=== PATIENT | female | born 1945 | race Hispanic/Latino ===

== ENCOUNTER 2018-03-10 16:18 | Emergency (ER) | payer MEDICARE ==
[~2018-03-10] VITALS: Ht 157.5 cm; Wt 52.2 kg
--- NOTE | 2018-03-10 18:21 | Diagnostic Imaging Report ---
PROCEDURE:X-RAY RIGHT FOOT, COMPLETE COMPARISON:None. INDICATIONS:RIGHT 3RD AND 4TH DIGIT PAIN, BRUISING TODAY FINDINGS: There are no fractures, dislocations, lytic or blastic lesions. Deformities of the fifth metatarsal head and distal aspect of the fifth proximal phalanx may be related to remote trauma. Posterior and dorsal calcaneal enthesophytes. The bones are well-mineralized. The soft-tissues are unremarkable. CONCLUSION: No acute osseous abnormalities. Dictated by: Destin Yang M.D. on 03/10/2018 at 18:26 Electronically approved by: Destin Yang M.D. on 03/10/2018 at 18:26
[2018-03-10 19:37] VITALS: BP 141/75
== END 2018-03-10 19:53 | disposition home or self-care (01) ==
LOC: ER 16:18
DX: S92.351A Displaced fracture of fifth metatarsal bone, right foot, initial encounter for closed fracture (principal); M79.671 Pain in right foot; S90.121A Contusion of right lesser toe(s) without damage to nail, initial encounter; I10 Essential (primary) hypertension; K21.9 Gastro-esophageal reflux disease without esophagitis; G89.29 Other chronic pain
CPT/HCPCS: 99283

== ENCOUNTER 2018-06-04 11:59 | Observation (INO) | payer MEDICARE ==
[~2018-06-04] VITALS: Ht 157.5 cm; Wt 57.6 kg
--- OUTSIDE RECORDS SUMMARY | 2018-06-04 12:01 | XMS REPORT | Clinical Summary ---
Author Author [facility] Organization [facility] Address Unknown Phone Unavailable Care Team Providers Care Club Director Name Role Phone Mariana Up MD PCP Allergies Active Allergy Reactions Severity Noted Date Comments Adhesive Rash High 02/07/2014 Penicillins Hives High 06/11/2010 ANAPHYLACTIC SHOCK ANAPHYLACTIC SHOCK Propoxyphene 01/28/2013 ANAPHYLACTIC SHOCK N-Acetaminophen Current Medications Prescription Sig. Disp. Refills Start End Date Status Date amLODIPine (NORVASC) 10 Take 10 mg by mouth. Active mg tablet acetaminophen-codeine Q 6 H PRN P 08/13/19 Active (TYLENOL WITH CODEINE #3) 17 300-30 mg per tablet albuterol (PROAIR Take 2 puffs by mouth. 09/21/19 Active HFA,PROVENTIL 17 HFA,VENTOLIN HFA) 90 mcg/actuation inhaler alendronate (FOSAMAX) 70 Take 70 mg by mouth. 09/21/19 Active MG tablet 17 levothyroxine (SYNTHROID, Take 100 mcg by mouth. 09/21/19 Active LEVOXYL) 100 mcg tablet 17 metoprolol succinate XL Take 25 mg by mouth. 09/21/19 Active (TOPROL-XL) 25 mg 24 hr 17 tablet losartan-hydrochlorothiaz Take 1 tablet by mouth. 09/21/19 Active mikey (HYZAAR) 50-12.5 mg 17 per tablet oxyCODone-acetaminophen Take 1 tablet by mouth Active (PERCOCET) 5-325 mg per every 4 (four) hours as tablet needed for moderate pain. Active Problems Problem Noted Date History of thyroid cancer 02/22/2017 HTN (hypertension) 02/22/2017 Back pain 02/22/2017 Social History Tobacco Use Types Packs/Day Years Used Date Never Smoker Sex Assigned at Date Recorded Not on file Last Filed Vital Signs Not on file Plan of Treatment Health Maintenance Due Date Last Done Comments BREAST CANCER SCREENING 1995 COLON CANCER SCREENING 1995 SHINGRIX VACCINE (#1) 1995 INFLUENZA VACCINE 03/08/2018 09/10/2016, 06/20/2012, 04/06/2011 PNEUMOCOCCAL Completed 10/05/2009 POLYSACCHARIDE VACCINE AGE 65 AND OVER PNEUMOCOCCAL-13 Completed 01/17/2015 ZOSTER VACCINE Completed 07/08/2015 Results Not on fileafter 06/03/2017 Insurance Payer Benefit Subscriber ID Type Phone Address Plan / Group AETNA MEDICARE AETNA xxxxxxxx HMO MEDICARE HMO/PPO [facility]
--- OUTSIDE RECORDS SUMMARY | 2018-06-04 12:01 | XMS REPORT | Clinical Summary ---
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 CPT CODE: [id number] INDICATION: Abdominal pain, rule out cholecystitis PROTOCOL: 5.4 mCi of Tc-99m mebrofenin was injected intravenously. Images of the upper abdomen were obtained for approximately 70 minutes after tracer injection. FINDINGS: There is a photopenic defect in the medial portion of the right lobe of the liver superiorly. Initial tracer uptake into the liver is otherwise physiological. Subsequent tracer clearance from the liver proceeds normally. There is good visualization of the extrahepatic biliary duct and the gallbladder, and the tracer appears appropriately in the small bowel. Activity is also noted in the stomach. IMPRESSION: 1. Space-occupying lesion of the right lobe of the liver consistent with known cyst. 2. No evidence of acute cholecystitis or biliary obstruction. 3. Bile reflux into the stomach. Signed: Jennifer Charles MD Report Verified Date/Time: 08/02/2017 13:14:45 Reading Location: [address] Reading Room Performing Organization Address City/State/Zipcode Phone Number [facility] * PT/aPTT (08/02/2017 6:55 AM PERITONEAL DIALYSIS REGISTERED NURSE) Only the most recent of 3 results within the time period is included. Protime 14.8 (H) 11.7 - 14.7 seconds [facility] INR 1.2 <=5.9 [facility] PTT 29.1 22.5 - 36.0 seconds [facility] Specimen Blood - Central Venous Line Narrative Performed At RECOMMENDED COUMADIN/WARFARIN INR THERAPY RANGES [facility] STANDARD DOSE: 2.0 - 3.0 Includes: PROPHYLAXIS for venous thrombosis, [facility] systemic embolization; TREATMENT for venous thrombosis and/or pulmonary embolus. HIGH RISK: Target INR is 2.5-3.5 for patients with mechanical heart valves. Performing Organization Address City/[facility]/Zipcode Phone Number [facility] [address] [place] [address] [facility] C[facility] * CBC with platelet count + automated diff (08/02/2017 6:55 AM PERITONEAL DIALYSIS REGISTERED NURSE) Only the most recent of 4 results within the time period is included. WBC 3.9 3.5 - 10.5 K/L [facility] RBC 3.77 (L) 3.93 - 5.22 M/L [facility] Hemoglobin 10.4 (L) 11.2 - 15.7 GM/DL [facility] Hematocrit 32.1 (L) 34.1 - 44.9 % [facility] MCV 85.1 79.4 - 94.8 fL [facility] MCH 27.6 25.6 - 32.2 pg [facility] MCHC 32.4 32.2 - 35.5 GM/DL [facility] RDW 13.0 11.7 - 14.4 % [facility] Platelets 169 150 - 450 K/CU MM [facility] MPV 9.6 9.4 - 12.3 fL [facility] nRBC 0 0 - 0 /100 WBC [facility] % Neutros 52 % [facility] % Lymphs 35 % [facility] % Monos 8 % [facility] % Eos 4 % [facility] % Baso 1 % [facility] # Neutros 2.02 1.56 - 6.13 K/L [facility] # Lymphs 1.37 1.18 - 3.74 K/L [facility] # Monos 0.30 0.24 - 0.36 K/L [facility] # Eos 0.15 0.04 - 0.36 K/L [facility] # Baso 0.02 0.01 - 0.08 K/L [facility] Immature 0 0 - 1 % [facility] Granulocytes-Relative [facility] Specimen Blood - Central Venous Line Performing Organization Address City/State/Zipcode Phone Number [facility] [address] [place] [address] [facility] * Phosphorus (08/01/2017 6:06 AM PERITONEAL DIALYSIS REGISTERED NURSE) Only the most recent of 2 results within the time period is included. Phosphorus 2.6 2.3 - 4.7 mg/dL [facility] Specimen Blood - Arm, Right Performing Organization Address City/State/Zipcode Phone Number [phone] [facility] * Magnesium (08/01/2017 6:06 AM PERITONEAL DIALYSIS REGISTERED NURSE) Only the most recent of 2 results within the time period is included. Magnesium 1.7 1.6 - 2.6 mg/dL [facility] Specimen Blood - Arm, Right Performing Organization Address City/State[facility] Phone Number [address] [address] [facility] * Hepatic function panel (08/01/2017 6:06 AM PERITONEAL DIALYSIS REGISTERED NURSE) Only the most recent of 3 results within the time period is included. Protein, Total 6.8 6.0 - 8.3 gm/dL [facility] Albumin 3.8 3.5 - 5.0 g/dL [facility] Total Bilirubin 0.4 0.2 - 1.2 mg/dL [facility] Bilirubin, Direct 0.2 0.1 - 0.5 mg/dL [facility] Alkaline Phosphatase 78 40 - 150 U/L [facility] AST 16 5 - 34 U/L [facility] ALT 9 6 - 55 U/L [facility] Specimen Blood - Arm, Right Performing Organization Address City/State/[facility] Phone Number [phone] [facility] * Basic metabolic panel (08/01/2017 6:06 AM PERITONEAL DIALYSIS REGISTERED NURSE) Only the most recent of 3 results within the time period is included. Sodium 141 136 - 145 meq/L [facility] Potassium 4.1 3.5 - 5.1 meq/L [facility] Chloride 110 (H) 98 - 107 meq/L [facility] CO2 15 (L) 22 - 29 meq/L [facility] BUN 9 7 - 21 mg/dL [facility] Creatinine 0.59 0.57 - 1.25 mg/dL [facility] Glucose 48 (L) 70 - 105 mg/dL [facility] Calcium 9.1 8.4 - 10.2 mg/dL [facility] EGFR 100Comment: ESTIMATED GFR IS mL/min/1.73 sq m [facility] NOT ACCURATE CREATININE [facility] CLEARANCE IN PREDICTING GLOMERULAR FILTRATION RATE. ESTIMATED GFR IS NOT APPLICABLE FOR DIALYSIS PATIENTS. Specimen Blood - Arm, Right Performing Organization Address City/State/Zipcode Phone Number [facility] [address] [place] [address] [facility] * CT abdomen/pelvis with IV contrast (07/31/2017 11:33 AM PERITONEAL DIALYSIS REGISTERED NURSE) Narrative Performed At FINAL REPORT Harri DOSE REDUCTION: The examination was performed according to departmental dose-optimization program which includes automated exposure control, adjustment of the mA and/or kV according to patient size and/or use of iterative reconstruction technique. TECHNIQUE: CT of the abdomen and pelvis with intravenous contrast. COMPARISON: CT, 06/12/2012 Discussion: There is atelectasis in the lung bases. Trace pleural effusions are seen. Partially depicted heart is enlarged. A right hepatic cyst is identified measuring 6 x 5 cm. This is enlarged compared to 06/12/2012, although the density measurements remain consistent with a simple cyst. There is mild intra and extrahepatic bile duct dilatation, with the CBD measuring up to 9 mm. This appears similar to the CT from 06/12/2012. No gross CT findings of cholecystitis. Pancreas appears unremarkable. There is a 1 cm low-density lesion in the spleen which is difficult to characterize further. Adrenal glands appear unremarkable. There is a 3 mm nonobstructing left renal stone. 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 A hypoenhancing 6 mm lesion in the right kidney is too small to characterize. Otherwise kidneys and ureters appear unremarkable. Moderate amount of stool throughout the colon. There is moderate wall thickening involving portions of the ascending colon. Nonspecific colitis is suspected. Differential would include infectious, inflammatory, and ischemic etiologies. Otherwise small bowel and colon appear grossly unremarkable. The appendix is not well visualized. However there is noinflammatory stranding or fluid collection inthe right lower quadrant to suggest the presence of appendicitis. There is trace perihepatic ascites. Trace scattered small amounts of free fluid seen elsewhere. No organized fluid collection or abscess. No significant lymphadenopathy. Aorta and IVC are normal in caliber. Uterus is surgically absent. No suspicious adnexal masses. Urinary bladder is unremarkable. Bilateral subcutaneous/soft tissue areas of stranding and calcifications again noted, similar to 06/12/2012. IMPRESSION: 1. Right hepatic cyst appears enlarged compared to 06/12/2012 although density measurements on this exam remain consistent with simple cyst. This could be followed. 2. Mild intra and extra hepatic bile duct dilatation appears relatively similar as well. Correlation with history and LFTs recommended. This could be assessed with MRCP if there is concern. 3. Nonspecific indeterminate low-density splenic lesion which could be followed. 4. Wall thickening involving portions of the ascending colon could represent nonspecific colitis. 5. Scattered minimal amounts of fluid fluid and stranding. No organized fluid collection or abscess. 6. Nonobstructing left renal stone. Subcentimeter right renal hypodensity, nonspecific. Signed: Gavin Julian MD Report Verified Date/Time:07/31/2017 12:17:33 Reading Location: [address] Transitional Reading Room Procedure Note Interface, External Ris In - 07/31/2017 12:19 PM PERITONEAL DIALYSIS REGISTERED NURSE FINAL REPORT DOSE REDUCTION: The examination was performed according to departmental dose-optimization program which includes automated exposure control, adjustment of the mA and/or kV according to patient size and/or use of iterative reconstruction technique. TECHNIQUE: CT of the abdomen and pelvis with intravenous contrast. COMPARISON: CT, 06/12/2012 Discussion: There is atelectasis in the lung bases. Trace pleural effusions are seen. Partially depicted heart is enlarged. A right hepatic cyst is identified measuring 6 x 5 cm. This is enlarged compared to 06/12/2012, although the density measurements remain consistent with a simple cyst. There is mild intra and extrahepatic bile duct dilatation, with the CBD measuring up to 9 mm. This appears similar to the CT from 06/12/2012. No gross CT findings of cholecystitis. Pancreas appears unremarkable. There is a 1 cm low-density lesion in the spleen which is difficult to characterize further. Adrenal glands appear unremarkable. There is a 3 mm nonobstructing left renal stone. 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 A hypoenhancing 6 mm lesion in the right kidney is too small to characterize. Otherwise kidneys and ureters appear unremarkable. Moderate amount of stool throughout the colon. There is moderate wall thickening involving portions of the ascending colon. Nonspecific colitis is suspected. Differential would include infectious, inflammatory, and ischemic etiologies. Otherwise small bowel and colon appear grossly unremarkable. The appendix is not well visualized. However there is no inflammatory stranding or fluid collection in the right lower quadrant to suggest the presence of appendicitis. There is trace perihepatic ascites. Trace scattered small amounts of free fluid seen elsewhere. No organized fluid collection or abscess. No significant lymphadenopathy. Aorta and IVC are normal in caliber. Uterus is surgically absent. No suspicious adnexal masses. Urinary bladder is unremarkable. Bilateral subcutaneous/soft tissue areas of stranding and calcifications again noted, similar to 06/12/2012. IMPRESSION: 1. Right hepatic cyst appears enlarged compared to 06/12/2012 although density measurements on this exam remain consistent with simple cyst. This could be followed. 2. Mild intra and extra hepatic bile duct dilatation appears relatively similar as well. Correlation with history and LFTs recommended. This could be assessed with MRCP if there is concern. 3. Nonspecific indeterminate low-density splenic lesion which could be followed. 4. Wall thickening involving portions of the ascending colon could represent nonspecific colitis. 5. Scattered minimal amounts of fluid fluid and stranding. No organized fluid collection or abscess. 6. Nonobstructing left renal stone. Subcentimeter right renal hypodensity, nonspecific. Signed: Gavin Julian MD Report Verified Date/Time: 07/31/2017 12:17:33 Reading Location: [address] Transitional Reading Room Performing Organization Address City/State/Zipcode Phone Number [facility] * Prothrombin time/INR (07/31/2017 4:45 AM PERITONEAL DIALYSIS REGISTERED NURSE) Protime 15.1 (H) 11.7 - 14.7 seconds [facility] INR 1.2 <=5.9 [facility] Specimen Blood - Arm, Left Narrative Performed At RECOMMENDED COUMADIN/WARFARIN INR THERAPY RANGES [facility] STANDARD DOSE: 2.0 - 3.0 Includes: PROPHYLAXIS for venous thrombosis, [facility] systemic embolization; TREATMENT for venous thrombosis and/or pulmonary embolus. HIGH RISK: Target INR is 2.5-3.5 for patients with mechanical heart valves. Performing Organization Address City/State/Zipcode Phone Number [facility] [address] [place] [address] [facility] * Urinalysis w/ Microscopic (07/30/2017 1:15 PM PERITONEAL DIALYSIS REGISTERED NURSE) Color, UA Yellow [facility] Clarity, UA Hazy [facility] Specific [place], UA 1.023 1.001 - 1.035 [facility] pH, UA 7.0 5.0 - 8.0 [facility] Protein, UA 20 mg/dL (A) Negative [facility] Glucose, UA Negative Negative [facility] Ketones, UA Negative Negative [facility] Bilirubin, UA Negative Negative [facility] Blood, UA Negative Negative [facility] Nitrite, UA Negative Negative [facility] Leukocytes, UA Trace (A) Negative [facility] Urobilinogen, UA 2.0 (H) 0.2 - 1.0 mg/dL [facility] RBC, UA 2 /HPF [facility] WBC, UA 0 /HPF [facility] Mucus Rare [facility] Squam Epithel, UA 2 /HPF [facility] Specimen Source Urine, Clean Catch [facility] Specimen Urine - Urine, Clean Catch Performing Organization Address City/State/Zipcode Phone Number [facility] [address] [place] [address] MED[facility] * US abdomen limited (07/30/2017 12:36 PM PERITONEAL DIALYSIS REGISTERED NURSE) Narrative Performed At FINAL REPORT Harri Comparison: Right upper quadrant ultrasound, 06/13/2010 Discussion: Sonographic evaluation of the right upper quadrant of the abdomen was performed. Liver:Measures 12.1 cm in length at the right midclavicular. It demonstrates normal echogenicity with a right hepatic cyst measuring 5 x 5 x 5 cm. Main portal vein diameter 8 mm. Biliary tree:Common duct 7 mm. Gallbladder:Contracted and difficult to evaluate. No definite gallstones. No wall thickening.No pericholecystic fluid.Negative sonographic Magdaleno's sign. Pancreas: Visualized portions demonstrate no abnormalities. Ascites:No fluid Kidneys: The right kidney measures 8.9cm . It demonstrates normal cortical echogenicity, without evidence of hydronephrosis, mass, or calculi. IVC/Aorta:Segments partially seen demonstrate no obvious abnormalities. IMPRESSION: 1. Gallbladder contracted and difficult to evaluate. No definite gallstones. 2. Hepatic cyst. Signed: Gavin Julian MD Report Verified Date/Time:07/30/2017 13:19:24 Reading Location: [facility] C013Y CT Body Reading Room Procedure Note Interface, External Ris In - 07/30/2017 1:21 PM PERITONEAL DIALYSIS REGISTERED NURSE FINAL REPORT Comparison: Right upper quadrant ultrasound, 06/13/2010 Discussion: Sonographic evaluation of the right upper quadrant of the abdomen was performed. Liver: Measures 12.1 cm in length at the right midclavicular. It demonstrates normal echogenicity with a right hepatic cyst measuring 5 x 5 x 5 cm. Main portal vein diameter 8 mm. Biliary tree: Common duct 7 mm. Gallbladder: Contracted and difficult to evaluate. No definite gallstones. No wall thickening. No pericholecystic fluid.Negative sonographic Magdaleno's sign. Pancreas: Visualized portions demonstrate no abnormalities. Ascites: No fluid Kidneys: The right kidney measures 8.9cm . It demonstrates normal cortical echogenicity, without evidence of hydronephrosis, mass, or calculi. IVC/Aorta: Segments partially seen demonstrate no obvious abnormalities. IMPRESSION: 1. Gallbladder contracted and difficult to evaluate. No definite gallstones. 2. Hepatic cyst. Signed: Gavin Julian MD Report Verified Date/Time: 07/30/2017 13:19:24 Reading Location: [facility] B1 C013Y CT Body Reading Room Performing Organization Address City/State/Zipcode Phone Number [facility] * Lipase (07/30/2017 12:00 PM PERITONEAL DIALYSIS REGISTERED NURSE) Lipase 15 8 - 78 U/L [facility] Specimen Blood - Arm, Left Performing Organization Address [facility] Phone Number [facility] [address] [place] [address] MED[facility]ENTER after 06/03/2017 Insurance Payer Benefit Subscriber ID Type Phone Address Plan / Group [employer] - MEDICARE [employer] CARE [employer] xxxxxxxx [phone] [address] [place] [address] HMO POS PPO Advance Directives For more information, please contact: [address] [address] Date Inactivated Comments Code Status Date Activated 08/03/2017 7:15 AM Full Code 07/30/2017 4:14 PM This code status was determined by: Patient
[2018-06-04] MEDS ORDERED: HYDROCODONE/APAP 5MG-325MG TAB PO ONE (12:15)
[2018-06-04] MEDS ORDERED: HYDROCODONE/APAP 5MG-325MG TAB ONE (12:38)
--- NOTE | 2018-06-04 13:26 | Diagnostic Imaging Report ---
Hip complete Indication: Pain, no trauma Technique: AP and frogleg views of left hip obtained. Comparison: None Findings: Left hip remains properly located. The cortex appears intact throughout. Trochanters appear intact. No significant degenerative changes. Adjacent pubic rami appear intact. Posterior element fusion hardware is incompletely imaged. Visualized portions of the hardware intact. There is fusion of the lower lumbar spine and partial fusion of the sacroiliac joints. There are extensive soft tissue calcifications of the pelvis and proximal thighs. IMPRESSION: Left hip properly located. No convincing evidence for fracture. 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 Signed by: Dr. Rebecca Wen MD on 06/04/2018 1:23 PM
[2018-06-04] MEDS ORDERED: DEXAMETHASONE SOD PHOS 10 MG/1 ML VIAL INJ ONE (13:30)
[2018-06-04] MEDS ORDERED: KETOROLAC TROMETHAMINE 30 MG/ML VIAL IV ONE (13:30)
[2018-06-04] MEDS ORDERED: HYDROMORPHONE 2MG/ML 2 MG/ML ML IM ONE (14:30)
--- OUTSIDE RECORDS SUMMARY | 2018-06-04 15:39 | XMS REPORT | Clinical Summary ---
Author Author [facility] Organization [facility] Address Unknown Phone Unavailable Care Team Providers Care Geriatric Nurse Assistant Name Role Phone Mariana Up MD PCP [...] AETNA MEDICARE AET[employer] xxxxxxxx HMO MEDICARE HMO/PPO [facility]
--- OUTSIDE RECORDS SUMMARY | 2018-06-04 15:39 | XMS REPORT | Clinical Summary ---
Author Author [facility] Address Unknown Phone Unavailable Care Team Providers [employer] Salesperson Name Role Phone Mariana Ford MD PCP [...] levothyroxine which is being managed by her roller machine operator. Thyroid disease Overview: hypothyroid GERD (gastroesophageal reflux [...] NM HEPATOBILIARY IMAGING Routine 08/02/2017 12:20 PM TELEVISION ENGINEERING TEACHER CBC W/PLT COUNT & AUTO Routine 08/02/2017 DIFFERENTIAL 6:55 AM TELEVISION ENGINEERING TEACHER CBC W/PLT COUNT & AUTO Routine 08/02/2017 DIFFERENTIAL 6:55 AM TELEVISION ENGINEERING TEACHER PT/APTT Routine 08/02/2017 6:55 AM TELEVISION ENGINEERING TEACHER CBC W/PLT COUNT & AUTO Routine 08/01/2017 DIFFERENTIAL 6:06 AM TELEVISION ENGINEERING TEACHER MAGNESIUM Routine 08/01/2017 6:06 AM TELEVISION ENGINEERING TEACHER CBC W/PLT COUNT & AUTO Routine 08/01/2017 DIFFERENTIAL 6:06 AM TELEVISION ENGINEERING TEACHER BASIC METABOLIC PANEL (7) Routine 08/01/2017 6:06 AM TELEVISION ENGINEERING TEACHER HEPATIC FUNCTION PANEL Routine 08/01/2017 6:06 AM TELEVISION ENGINEERING TEACHER PT/APTT Routine 08/01/2017 6:06 AM TELEVISION ENGINEERING TEACHER PHOSPHORUS Routine 08/01/2017 6:06 AM TELEVISION ENGINEERING TEACHER CT ABDOMEN/PELVIS WITH IV STAT 07/31/2017 CONTRAST 11:33 AM TELEVISION ENGINEERING TEACHER CBC W/PLT COUNT & AUTO Routine 07/31/2017 DIFFERENTIAL 4:45 AM TELEVISION ENGINEERING TEACHER CBC W/PLT COUNT & AUTO Routine 07/31/2017 DIFFERENTIAL 4:45 AM TELEVISION ENGINEERING TEACHER BASIC METABOLIC PANEL (7) Routine 07/31/2017 4:45 AM TELEVISION ENGINEERING TEACHER HEPATIC FUNCTION PANEL Routine 07/31/2017 4:45 AM TELEVISION ENGINEERING TEACHER PT/APTT Routine 07/31/2017 4:45 AM TELEVISION ENGINEERING TEACHER PROTHROMBIN TIME/INR Routine 07/31/2017 4:45 AM TELEVISION ENGINEERING TEACHER MAGNESIUM Routine 07/31/2017 4:45 AM TELEVISION ENGINEERING TEACHER PHOSPHORUS Routine 07/31/2017 4:45 AM TELEVISION ENGINEERING TEACHER URINALYSIS W/ MICROSCOPIC STAT 07/30/2017 1:15 PM TELEVISION ENGINEERING TEACHER US ABDOMEN LIMITED STAT 07/30/2017 12:36 PM TELEVISION ENGINEERING TEACHER CBC W/PLT COUNT & AUTO STAT 07/30/2017 DIFFERENTIAL 12:00 PM TELEVISION ENGINEERING TEACHER LIPASE STAT 07/30/2017 12:00 PM TELEVISION ENGINEERING TEACHER HEPATIC FUNCTION PANEL STAT 07/30/2017 12:00 PM TELEVISION ENGINEERING TEACHER CBC W/PLT COUNT & AUTO STAT 07/30/2017 DIFFERENTIAL 12:00 PM TELEVISION ENGINEERING TEACHER BASIC METABOLIC PANEL (7) STAT 07/30/2017 12:00 PM TELEVISION ENGINEERING TEACHER after 06/03/2017 Results * CT spine cervical without IV contrast (11/23/2017 8:41 PM CDT) Narrative Performed At FINAL REPORT [facility] CT cervical spine Comparison: Cervical spine MRI [...] 20:58:20 Performing Organization Address City/State/Zipcode Phone Number [facility] * CT chest without contrast (11/23/2017 8:41 PM CDT) Narrative Performed At FINAL REPORT [facility] CLINICAL INDICATION: Trauma, left-sided chest pain COMPARISON: [...] MD Report Verified Date/Time:11/23/2017 21:06:29 Reading Location: [address] Reading Room Procedure Note Interface, External [...] Report Verified Date/Time: 11/23/2017 21:06:29 Reading Location: [address] Reading Room Performing Organization Address City/State/Zipcode Phone Number [facility] * ECG 12 lead (11/23/2017 7:51 PM CDT) Narrative Performed At Ventricular Rate 64 BPM [facility] Atrial Rate 64 BPM P-R Interval 170 ms QRS Duration 74 ms Q-T Interval 432 ms QTC Calculation(Bazett) 445 ms P Aurora 55 degrees R Aurora 14 degrees T Aurora 45 degrees Normal sinus rhythm Normal ECG [...] 432 ms QTC Calculation(Bazett) 445 ms P Aurora 55 degrees R [place] 14 degrees T [place] 45 degrees Normal sinus rhythm Normal ECG [...] PM CDT) Narrative Performed At FINAL REPORT [facility] CT head without contrast. Maxillofacial CT Comparisons: [...] PM CDT) Narrative Performed At FINAL REPORT [facility] CT head without contrast. Maxillofacial CT Comparisons: [...] CDT) Narrative Performed At FINAL REPORT [facility] TECHNIQUE: Frontal view of the chest [...] MD Report Verified Date/Time:11/23/2017 18:26:41 Reading Location: [address] Consult Reading Room Procedure Note Interface, [...] Report Verified Date/Time: 11/23/2017 18:26:41 Reading Location: [facility] [id number] Consult Reading Room Performing Organization Address City/State/Zipcode Phone Number [facility] * NM hepatobiliary (HIDA) scan (08/02/2017 12:20 PM TELEVISION ENGINEERING TEACHER) Narrative Performed At FINAL REPORT [facility] PROCEDURE: HEPATOBILIARY SCAN CPT CODE: 53873 INDICATION: Abdominal pain, rule out cholecystitis PROTOCOL: [...] MD Report Verified Date/Time:08/02/2017 13:14:45 Reading Location: [address] [id number] [facility] Reading Room Procedure Note Interface, External Ris In - 08/02/2017 1:17 PM TELEVISION ENGINEERING TEACHER FINAL REPORT PROCEDURE: HEPATOBILIARY SCAN CPT CODE: [id number] INDICATION: Abdominal pain, rule out cholecystitis PROTOCOL: [...] Report Verified Date/Time: 08/02/2017 13:14:45 Reading Location: [address] Reading Room Performing Organization Address City/State/Zipcode Phone Number [facility] * PT/aPTT (08/02/2017 6:55 AM TELEVISION ENGINEERING TEACHER) Only the most recent of 3 results within the time period is included. Protime 14.8 (H) 11.7 - 14.[address] [facility] INR 1.2 <=[address]9 [facility] PTT 29.1 22.5 - 36.[address] [facility] Specimen Blood - Central Venous Line Narrative Performed At RECOMMENDED COUMADIN/WARFARIN INR THERAPY RANGES [facility] STANDARD DOSE: 2.0 - 3.0 Includes: PROPHYLAXIS for venous thrombosis, [facility] systemic embolization; TREATMENT for venous thrombosis and/or pulmonary embolus. HIGH RISK: Target INR is 2.5-3.5 for patients with mechanical heart valves. Performing Organization Address City/[facility]/Zipcode Phone Number [facility] [address] [place] [address] [facility] * CBC with platelet count + automated diff (08/02/2017 6:55 AM TELEVISION ENGINEERING TEACHER) Only the most recent of 4 results within the time period is included. WBC 3.9 3.5 - 10.5 K/L [facility] RBC 3.77 (L) 3.93 - 5.22 M/L [facility] Hemoglobin 10.4 (L) 11.2 - 15.7 GM/DL [facility] Hematocrit 32.1 (L) 34.1 - 44.9 % [facility] MCV 85.1 79.4 - 94.[address] [facility] MCH 27.6 25.6 - 32.[address] [facility] MCHC 32.4 32.2 - 35.5 GM/DL [facility] RDW 13.0 11.7 - 14.4 % [facility] Platelets 169 150 - 450 K/CU MM [facility] MPV 9.6 9.4 - 12.[address] [facility] nRBC 0 0 - 0 /[address] [facility] % Neutros 52 % [facility] % Lymphs 35 % [facility] % Monos 8 % [facility] % Eos 4 % [facility] % Baso 1 % [facility] # Neutros 2.02 1.56 - 6.13 K/L [facility] # Lymphs 1.37 1.18 - 3.74 K/L [facility] # Monos 0.30 0.24 - 0.36 K/L [facility] # Eos 0.15 0.04 - 0.36 K/L [facility] # Baso 0.02 0.01 - 0.08 K/L [facility] Immature 0 0 - 1 % [facility] Granulocytes-Relative [facility] Specimen Blood - Central Venous Line Performing Organization Address City/State/Zipcode Phone Number [facility] [address] [place] [address] MEDICAL [facility]ENTER * Phosphorus (08/01/2017 6:06 AM TELEVISION ENGINEERING TEACHER) Only the most recent of 2 results within the time period is included. Phosphorus 2.6 2.3 - 4.7 mg/dL [facility] Specimen Blood - Arm, Right Performing Organization Address City/State/Zipcode Phone Number [address] [phone] [facility] * Magnesium (08/01/2017 6:06 AM TELEVISION ENGINEERING TEACHER) Only the most recent of 2 results within the time period is included. Magnesium 1.7 1.6 - 2.6 mg/dL [facility] Specimen Blood - Arm, Right Performing Organization Address City/State/[facility] Phone Number [address] [address] [facility] * Hepatic function panel (08/01/2017 6:06 AM TELEVISION ENGINEERING TEACHER) Only the most recent of 3 results within the time period is included. Protein, Total 6.8 6.0 - 8.3 gm/dL [facility] Albumin 3.8 3.5 - 5.0 g/dL [facility] Total Bilirubin 0.4 0.2 - 1.2 mg/dL [facility] Bilirubin, Direct 0.2 0.1 - 0.5 mg/dL [facility] Alkaline Phosphatase 78 40 - 150 U/L [facility] AST 16 5 - 34 U/L [facility] ALT 9 6 - 55 U/L [facility] Specimen Blood - Arm, Right Performing Organization Address City/State/[facility] Phone Number [address] [phone] [facility] * Basic metabolic panel (08/01/2017 6:06 AM TELEVISION ENGINEERING TEACHER) Only the most recent of 3 results within the time period is included. Sodium 141 136 - 145 meq/L [facility] Potassium 4.1 3.5 - 5.1 meq/L [facility] Chloride 110 (H) 98 - 107 meq/L [facility] CO2 15 (L) 22 - 29 meq/L [facility] BUN 9 7 - 21 mg/dL [facility] Creatinine 0.59 0.57 - 1.25 mg/dL [facility] Glucose 48 (L) 70 - 105 mg/dL [facility] Calcium 9.1 8.4 - 10.2 mg/dL [facility] EGFR 100Comment: ESTIMATED GFR IS mL/min/1.73 sq m [facility] NOT ACCURATE CREATININE [facility] CLEARANCE IN PREDICTING GLOMERULAR FILTRATION RATE. ESTIMATED GFR IS NOT APPLICABLE FOR DIALYSIS PATIENTS. Specimen Blood - Arm, Right Performing Organization Address City/State/Zipcode Phone Number [facility] [address] [place] [address] MEDICAL [facility]ENTER * CT abdomen/pelvis with IV contrast (07/31/2017 11:33 AM TELEVISION ENGINEERING TEACHER) Narrative Performed At FINAL REPORT [facility] DOSE REDUCTION: The examination was performed according [...] MD Report Verified Date/Time:07/31/2017 12:17:33 Reading Location: [address] Transitional Reading Room Procedure Note Interface, External Ris In - 07/31/2017 12:19 PM TELEVISION ENGINEERING TEACHER FINAL REPORT DOSE REDUCTION: The examination was [...] Report Verified Date/Time: 07/31/2017 12:17:33 Reading Location: [address] Transitional Reading Room Performing Organization Address City/State/Zipcode Phone Number [facility] * Prothrombin time/INR (07/31/2017 4:45 AM TELEVISION ENGINEERING TEACHER) Protime 15.1 (H) 11.7 - 14.[address] [facility] INR 1.[address]9 [facility] Specimen Blood - Arm, Left Narrative Performed At RECOMMENDED COUMADIN/WARFARIN INR THERAPY RANGES [facility] STANDARD DOSE: 2.0 - 3.0 Includes: PROPHYLAXIS for venous thrombosis, [facility] systemic embolization; TREATMENT for venous thrombosis and/or pulmonary embolus. HIGH RISK: Target INR is 2.5-3.5 for patients with mechanical heart valves. Performing Organization Address City/State/Zipcode Phone Number [facility] [address] [place] [address] MEDICAL [facility]ENTER * Urinalysis w/ Microscopic (07/30/2017 1:15 PM TELEVISION ENGINEERING TEACHER) Color, UA Yellow [facility] Clarity, UA Hazy [facility] Specific Hopkins, UA 1.023 1.001 - 1.035 [facility] pH, UA 7.0 5.0 - 8.0 [facility] Protein, UA 20 mg/dL (A) Negative [facility] Glucose, UA Negative Negative [facility] Ketones, UA Negative Negative [facility] Bilirubin, UA Negative Negative [facility] Blood, UA Negative Negative [facility] Nitrite, UA Negative Negative [facility] Leukocytes, UA Trace (A) Negative [facility] Urobilinogen, UA 2.0 (H) 0.2 - 1.0 mg/dL [facility] RBC, UA 2 /HPF [facility] WBC, UA 0 /HPF [facility] Mucus Rare [facility] Squam Epithel, UA 2 /HPF [facility] Specimen Source Urine, Clean Catch [facility] Specimen Urine - Urine, Clean Catch Performing Organization Address City/State/Zipcode Phone Number [facility] [address] [place] [address] MEDICAL CENTER * US abdomen limited (07/30/2017 12:36 PM TELEVISION ENGINEERING TEACHER) Narrative Performed At FINAL REPORT [facility] Comparison: Right upper quadrant ultrasound, 06/13/2010 Discussion: [...] MD Report Verified Date/Time:07/30/2017 13:19:24 Reading Location: [facility] [id number] CT Body Reading Room Procedure Note Interface, External Ris In - 07/30/2017 1:21 PM TELEVISION ENGINEERING TEACHER FINAL REPORT Comparison: Right upper quadrant ultrasound, [...] Report Verified Date/Time: 07/30/2017 13:19:24 Reading Location: [facility] B[facility] C013Y CT Body Reading Room Performing Organization Address City/State/Zipcode Phone Number [facility] * Lipase (07/30/2017 12:00 PM TELEVISION ENGINEERING TEACHER) Lipase 15 8 - 78 U/L [facility] Specimen Blood - Arm, Left Performing Organization Address [facility] Phone Number [facility] [address] [place] [address] MEDICAL [facility]ENTER after 06/03/2017 Insurance Payer Benefit Subscriber ID Type Phone Address Plan / Group [employer] - MEDICARE MGD CARE [employer] xxxxxxxx [phone] [address] [place] [address] HMO POS PPO Advance Directives For more information, please contact: [address] [address] Date Inactivated Comments Code Status Date Activated 08/03/2017 7:15 AM Full Code 07/30/2017 4:14 PM This code status was determined by: Patient
[2018-06-04 16:10] LABS: BASOPHILS % 0.3 % (0.0-1.0); EOSINOPHILS % 0.5 % (0.0-6.0); HEMATOCRIT 39.2 % (34.2-44.1); HEMOGLOBIN 12.8 g/dL (12.0-16.0); LYMPHOCYTES # (AUTO) 0.7 (1.0-3.2); LYMPHOCYTES % 11.7 % (18.0-39.1); MEAN CORPUSCULAR HEMOGLOBIN 27.6 pg (28-32); MEAN CORPUSCULAR HGB CONC 32.7 g/dL (31-35); MEAN CORPUSCULAR VOLUME 84.5 fL (81-99); MONOCYTES # (AUTO) 0.1 (0.2-0.8); MONOCYTES % 1.2 % (4.4-11.3); NEUTROPHILS # (AUTO) 5.2 (2.1-6.9); PLATELET COUNT 194 x10e3/uL (140-360); RED BLOOD COUNT 4.64 x10e6/uL (3.6-5.1); RED CELL DISTRIBUTION WIDTH 12.2 % (11.7-14.4)
[2018-06-04] MEDS: ONDANSETRON HCL INJ 2 MG/ML VIAL IV PRN ×2 (16:20→20:55)
[2018-06-04] MEDS: SODIUM CHLORIDE 0.9% 1000ML 1,000 ML IV SCH (16:22)
[2018-06-04] MEDS: MORPHINE SULFATE 2 MG/ML SYR IV PRN ×2 (16:24→20:56)
[2018-06-04 16:28] LABS: ALANINE AMINOTRANSFERASE 11 IU/L (0-55); ALBUMIN 4.2 g/dL (3.5-5.0); ALBUMIN/GLOBULIN RATIO 1.5 (0.8-2.0); ALKALINE PHOSPHATASE 74 IU/L (40-150); ANION GAP 15.1 mmol/L (8-16); BLOOD UREA NITROGEN 14 mg/dL (7-26); BUN/CREATININE RATIO 20 (6-25); CALCIUM 10.3 mg/dL (8.4-10.2); CARBON DIOXIDE 23 mmol/L (22-29); CHLORIDE 105 mmol/L (98-107); CREATININE, SERUM 0.69 mg/dL (0.57-1.11); EST GLOMERULAR FILTRATION RATE > 60 ML/MIN (60-); GLUCOSE 102 mg/dL (74-118); POTASSIUM 4.1 mmol/L (3.5-5.1); SODIUM 139 mmol/L (136-145)
[2018-06-04 18:00] VITALS: BP 127/61
[2018-06-04 18:05] VITALS: BP 127/61
[2018-06-04] MEDS ORDERED: METOPROLOL TART50 MG PO (18:28)
[2018-06-04] MEDS ORDERED: SYNTHROID100 MCG PO (18:28)
[2018-06-04] MEDS ORDERED: LOSARTAN POTASS25 MG PO (18:28)
[2018-06-04] MEDS ORDERED: PANTOPRAZOLE SO40 MG PO (18:28)
[2018-06-04] MEDS ORDERED: TRAZODONE HCL50 MG PO (18:28)
[2018-06-04] MEDS ORDERED: AMLODIPINE BESY10 MG PO (18:28)
[2018-06-04] MEDS ORDERED: HYDROMORPHONE 2MG/ML 2 MG/ML ML IV ONE (19:30)
[2018-06-04 19:55] VITALS: BP 117/56
[2018-06-04 20:06] VITALS: BP 117/56
[2018-06-05 00:19] VITALS: BP 119/56
[2018-06-05] MEDS: ONDANSETRON HCL INJ 2 MG/ML VIAL IV PRN ×2 (01:11→06:32)
[2018-06-05] MEDS: MORPHINE SULFATE 2 MG/ML SYR IV PRN ×3 (01:11→11:28)
[2018-06-05 05:13] LABS: BASOPHILS % 0.1 % (0.0-1.0); HEMATOCRIT 34.2 % (34.2-44.1); HEMOGLOBIN 11.4 g/dL (12.0-16.0); LYMPHOCYTES # (AUTO) 0.8 (1.0-3.2); LYMPHOCYTES % 10.9 % (18.0-39.1); MEAN CORPUSCULAR HEMOGLOBIN 27.7 pg (28-32); MEAN CORPUSCULAR HGB CONC 33.3 g/dL (31-35); MEAN CORPUSCULAR VOLUME 83.2 fL (81-99); MONOCYTES # (AUTO) 0.2 (0.2-0.8); MONOCYTES % 2.4 % (4.4-11.3); NEUTROPHILS % 86.3 % (38.7-80.0); PLATELET COUNT 211 x10e3/uL (140-360); RED BLOOD COUNT 4.11 x10e6/uL (3.6-5.1); RED CELL DISTRIBUTION WIDTH 12.1 % (11.7-14.4)
[2018-06-05 05:42] LABS: ANION GAP 13.9 mmol/L (8-16); BLOOD UREA NITROGEN 20 mg/dL (7-26); BUN/CREATININE RATIO 30 (6-25); CALCIUM 9.4 mg/dL (8.4-10.2); CARBON DIOXIDE 24 mmol/L (22-29); CHLORIDE 106 mmol/L (98-107); CREATININE, SERUM 0.66 mg/dL (0.57-1.11); EST GLOMERULAR FILTRATION RATE > 60 ML/MIN (60-); GLUCOSE 120 mg/dL (74-118); POTASSIUM 3.9 mmol/L (3.5-5.1); SODIUM 140 mmol/L (136-145)
[2018-06-05 05:48] VITALS: BP 128/59
[2018-06-05] MEDS ORDERED: ULTRACET TABLE1 EACH PO (05:56)
[2018-06-05] MEDS ORDERED: LEVOTHYROXINE SODIUM 100 MCG TAB PO SCH (06:00)
[2018-06-05] MEDS ORDERED: TRAZODONE HCL 50 MG TAB PO PRN (06:00)
[2018-06-05] MEDS ORDERED: TRAMADOL/APAP 37.5MG-325MG TAB PO PRN (06:00)
--- NOTE | 2018-06-05 07:18 | History and Physical ---
PRIMARY CARE PHYSICIAN: Ab Flores CHIEF COMPLAINT: Left hip pain. HISTORY OF PRESENT ILLNESS: This is a 72-year-old woman with a history of hypertension and chronic back disease, now developing left hip pain, which radiates to her knee. The pain is not shooting. It started 1 day prior. She did not fall. It does affect her walking. On further questioning, it was noted that the patient has left lower back pain that radiates to her knee. She is admitted for further evaluation and management. PAST MEDICAL HISTORY: Hypertension, chronic back disease, status post back surgery times 6, osteoporosis, thyroid cancer, status post resection of the thyroid, hypothyroidism. PAST SURGICAL HISTORY: Hysterectomy, back surgery times 6, rib resection, right rotator cuff repair, thyroid resection. ALLERGIES: PER ELECTRONIC MEDICAL RECORD. FAMILY HISTORY/SOCIAL HISTORY: Patient is . She has 3 children. No alcohol, illicits or cigarettes. MEDICATIONS: Per electronic medical record. REVIEW OF SYSTEMS: Denies any dizziness, chest pain, shortness of breath, fever, chills, sweats, nausea, vomiting, diarrhea, headache, or vision changes. PHYSICAL EXAMINATION VITAL SIGNS: Have been reviewed. GENERAL: A tired-appearing woman resting in bed. HEENT: Anicteric. CARDIOVASCULAR: Normal S1 and S2. LUNGS: Moderate breath sounds. ABDOMEN: Soft, nontender and nondistended. Left lower back is tender. Left hip is nontender. Left abdominal region is nontender. EXTREMITIES: No edema or calf tenderness. NEUROLOGICAL: Alert and oriented times 3. Moving all extremities. SKIN: Dry. PSYCHIATRIC: Flat affect. LABS: Reviewed. MEDICATIONS: Reviewed. ASSESSMENT: A 72-year-old woman with: 1. Left hip arthralgia. 2. Lumbago which is left-sided. 3. Ambulatory dysfunction. 4. Hypertension. 5. Hypothyroidism. 6. Gastroesophageal reflux disease. 7. Insomnia. PLAN 1. X-ray of the hip is negative. Will follow up the MRI of the hip, sacrum and lumbar region. 2. Pain control with pain medication. 3. Continue Synthroid. 4. Continue antihypertensive medication. 5. Continue PPI. 6. SCD for DVT prophylaxis. 7. Disposition. Follow up imaging. If negative, plan to discharge home. Job#: [id number] [place]
[2018-06-05] MEDS ORDERED: LOSARTAN POTASSIUM 25 MG TAB PO SCH (09:00)
[2018-06-05] MEDS ORDERED: AMLODIPINE BESYLATE 10 MG TAB PO SCH (09:00)
[2018-06-05] MEDS ORDERED: METOPROLOL TARTRATE 50 MG TAB PO SCH (09:00)
--- NOTE | 2018-06-05 09:45 | Diagnostic Imaging Report ---
MRI of the left hip without contrast. History: Hip pain. Decreased range of motion. Prior back surgery Technique: Multiplanar multisequence MRI of the hip without contrast. Comparison: Radiographs 06/04/2018 Findings: Postsurgical changes with associated artifacts over the lower lumbar spine obscure fine detail in the region. No acute fracture, subluxation or evidence of avascular necrosis. Scattered degenerative change about the pelvis. Mild degenerative arthrosis about the left hip with thinning of the articular cartilage at the superior lateral acetabulum and adjacent femoral head. There is minimal underlying bone marrow edema. There is degeneration and fraying of the labrum. There is a physiologic amount of fluid in the hip joint. The remainder of the visualized ligaments and tendons about the hip are intact. There is soft tissue edema and apparent scarring/fibrosis at the anterior lateral left hip in the subcutaneous fat best seen on axial series 6 image 1 through 15. The visualized muscles are otherwise normal in size and morphology. There is no evidence to suggest greater trochanteric bursitis. The visualized neurovascular bundles are intact. Impression: No acute fracture, subluxation or avascular necrosis. Mild degenerative arthrosis in the left hip joint. Soft tissue edema and apparent scarring/fibrosis at the anterior lateral left hip in the subcutaneous fat Signed by: Dr. Javier Klein M.D. on 06/05/2018 9:41 AM
[2018-06-05] MEDS: SODIUM CHLORIDE 0.9% 1000ML 1,000 ML IV SCH ×2 (09:56→11:18)
[2018-06-05] MEDS: PANTOPRAZOLE SOD 40 MG TABEC PO SCH ×2 (09:58→17:16)
[2018-06-05 10:14] VITALS: BP 153/70
[2018-06-05 11:30] VITALS: BP_SYST 164; BP_SYST 194; BP_DIAS 86
--- NOTE | 2018-06-05 15:57 | Diagnostic Imaging Report ---
History: Low back pain Comparison studies: None Technique: Sagittal, coronal and axial T2 , sagittal T1 and IR, axial spin density oblique. Intravenous contrast: None Findings: Number of lumbar vertebral bodies:5 Alignment: Mild left curvature centered at L3..No scoliosis. Soft tissues: Incidental 5.3 cm T2 hyperintense focus in the upper pole of the right kidney is presumed to be a cyst. No additional soft tissue abnormalities. Paraspinal muscles: Severe fatty infiltrated from L4 through S1. Lower thoracic cord:Normal in signal and morphology. The tip of the conus is at L1-L2. Cauda equina: No masses. No arachnoiditis. Postsurgical changes: Patient status post posterolateral fusion from L3 to L4. Pedicular screws are in place bilaterally at both levels. An additional screw traverses the right S1 ala. Hardware artifact prevents adequate evaluation of the surrounding soft tissues. The posterior elements are fused from L3 to S1. Vertebrae: Normal in height and signal intensity. No compression fractures, infection or neoplasm. Degenerative changes: T 11-L1: Mildly degenerated discs Patent spinal canal and foramina. No disc herniation. L1-L2: Mildly degenerated disc. Mild right foraminal stenosis due to an asymmetric disc bulge Patent spinal canal and left foramen. No disc herniation L2-L3: Mildly degenerated disc. Right asymmetric disc bulge. Patent spinal canal. No significant foraminal stenosis.. No disc herniation L3-S1: Mildly degenerated disc at L3-4, severely degenerated, partially fused at L4-5, fused at L5-S1. Patent spinal canal. No significant foraminal stenosis and spinal artifacts. No disc herniations. Partially visualized sacrum: No signal abnormalities. IMPRESSION: 1. Patient status post posterolateral fusion at L3-4. Hardware in place. Fusion of the L5-S1 disc and its posterior elements is presumed to be postsurgical as well. No hardware seen at this level except for a screw in the right S1 sacral ala. 2. Mild right curvature centered at L3-4. 3. Mild right foraminal stenosis at L1-L2 due to an asymmetric disc bulge. Otherwise, no significant foraminal stenosis. 4. Patent spinal canal. 5. No disc herniation. Signed by: Dr. Nicolas Burger M.D. on 06/05/2018 3:54 PM
[2018-06-05] MEDS ORDERED: MORPHINE SULFATE INJ 4 MG/ML INJ IV PRN (16:00)
[2018-06-05 17:17] VITALS: BP 142/67
[2018-06-05] MEDS ORDERED: DULOXETINE HCL 30 MG DELAYED RELEASE PO SCH (21:00)
[2018-06-05] MEDS ORDERED: GABAPENTIN 100 MG CAP PO SCH (22:00)
== END 2018-06-05 20:50 | disposition home or self-care (01) ==
LOC: ER 11:59 → ERHOLD 15:18 → IMCU 18:00
PROVIDERS: ADMIT Internal Medicine; ATTEND Internal Medicine
DX: M25.552 Pain in left hip (principal); M54.5 Low back pain; I10 Essential (primary) hypertension; E03.9 Hypothyroidism, unspecified; K21.9 Gastro-esophageal reflux disease without esophagitis; G47.00 Insomnia, unspecified; Z85.850 Personal history of malignant neoplasm of thyroid
CPT/HCPCS: 36415 ×2; 72148; 73502; 73721; 80048; 80053; 85025 ×2; 99284; G0378 ×2; J1100; J1170; J1885; J2270 ×3; J2405 ×2; J7030 ×2; S0164

== ENCOUNTER 2018-12-22 16:11 | Emergency (ER) | payer MEDICARE ==
[~2018-12-22] VITALS: Ht 157.5 cm; Wt 57.6 kg
[~2018-12-22 16:11] MED LIST: AMLODIPINE BESY10 MG PO; LOSARTAN POTASS25 MG PO; METOPROLOL TART50 MG PO; PANTOPRAZOLE SO40 MG PO; SYNTHROID100 MCG PO; TRAZODONE HCL50 MG PO; ULTRACET TABLE1 EACH PO
--- OUTSIDE RECORDS SUMMARY | 2018-12-22 16:14 | XMS REPORT | Clinical Summary ---
Author Author [facility] Address Unknown Phone Unavailable Care Team Providers Care Replenishment Analyst Name Role Phone Dwight Zambrano MD PCP Allergies Comments Active Allergy Reactions Severity Noted Date Adhesive Rash High 02/07/2014 ANAPHYLACTIC SHOCK ANAPHYLACTIC SHOCK Penicillins Hives High 06/11/2010 ANAPHYLACTIC SHOCK Propoxyphene 01/28/2013 N-Acetaminophen Medications End Date Status Medication Sig Dispensed Refills Start Date Active amLODIPine (NORVASC) 10 Take 10 mg by 0 mg tablet mouth. Active acetaminophen-codeine Q 6 H PRN P 0 (TYLENOL WITH CODEINE #3) 7 300-30 mg per tablet Active albuterol (PROAIR Take 2 puffs 0 HFA,PROVENTIL by mouth. 7 HFA,VENTOLIN HFA) 90 mcg/actuation inhaler Active alendronate (FOSAMAX) 70 Take 70 mg by 0 MG tablet mouth. 7 Active levothyroxine (SYNTHROID, Take 100 mcg 0 LEVOXYL) 100 mcg tablet by mouth. 7 Active metoprolol succinate XL Take 25 mg by 0 (TOPROL-XL) 25 mg 24 hr mouth. 7 tablet Active losartan-hydrochlorothiaz Take 1 tablet 0 mikey (HYZAAR) 50-12.5 mg by mouth. 7 per tablet Active oxyCODone-acetaminophen Take 1 tablet 0 (PERCOCET) 5-325 mg per by mouth tablet every 4 (four) hours as needed for moderate pain. Active Problems Problem Noted Date Hyperparathyroidism 10/05/2018 History of thyroid cancer 02/22/2017 HTN (hypertension) 02/22/2017 Back pain 02/22/2017 Encounters Care Team Description Date Type Specialty Rupinder Arango MD History of thyroid cancer (Primary Dx); Hyperparathyroidism (HCC) 10/05/2018 Office Visit General Surgery after 12/21/2017 Social History Date Tobacco Use Types Packs/Day Years Used Never Smoker Sex Assigned at Date Recorded Not on file Industry Job Start Date Occupation Not on file Not on file Not on file Travel End Travel History Travel Start No recent travel history available. Last Filed Vital Signs Time Taken Vital Sign Reading 10/05/2018 11:27 AM TABLET TESTER Blood Pressure 121/75 10/05/2018 11:27 AM TABLET TESTER Pulse 71 10/05/2018 11:27 AM TABLET TESTER Temperature 36.7 C (98 F) 10/05/2018 11:27 AM TABLET TESTER Respiratory Rate 17 10/05/2018 11:27 AM TABLET TESTER Oxygen Saturation 96% - Inhaled Oxygen - Concentration 10/05/2018 11:27 AM TABLET TESTER Weight 56.3 kg (124 lb 3.2 oz) 10/05/2018 11:27 AM TABLET TESTER Height 157.5 cm (5' 2") 10/05/2018 11:27 AM TABLET TESTER Body Mass Index 22.72 Plan of Treatment Health Maintenance Due Date Last Done Comments BREAST CANCER SCREENING 1995 COLON CANCER SCREENING 1995 SHINGLES VACCINES (#1) 1995 65+ PNEUMOCOCCAL VACCINE 2010 05/17/2018, 01/17/2015, 10/05/2009 (2 of 2 - PPSV23) INFLUENZA VACCINE 03/08/2019 05/17/2018, 05/24/2017, 09/10/2016, Additional history exists PNEUMOCOCCAL Completed 10/05/2009 POLYSACCHARIDE VACCINE AGE 65 AND OVER Results Not on fileafter 12/21/2017 Insurance Payer Benefit Subscriber ID Type Phone Address Plan / Group AETNA MEDICARE AETNA xxxxxxxx HMO MEDICARE HMO/PPO [facility] Advance Directives Patient has advance care planning documents on file. For more information, [place] contact: Cullen Martinez [address] [place] [address]
--- OUTSIDE RECORDS SUMMARY | 2018-12-22 16:14 | XMS REPORT | Clinical Summary ---
Author Author [facility] Address Unknown Phone Unavailable Care Team Providers Care Stone Fabricator Name Role Phone Mariana Ford MD PCP [...] (SYNTHROID, 1 LEVOTHROID) 100 MCG 7 tablet Active Problems Problem Noted Date Hypokalemia 07/31/2017 [...] levothyroxine which is being managed by her wreath and garland maker. Thyroid disease Overview: hypothyroid GERD (gastroesophageal reflux disease) Hypertension Asthma Immunizations Name Dates Previously Given Next Due [...] travel history available. Last Filed Vital Signs Not on file Plan of Treatment Not on file Results Not on fileafter 12/21/2017 Insurance Payer Benefit Subscriber ID Type Phone Address Plan / Group AETNA - MEDICARE [employer] CARE AETNA xxxxxxxx [phone] [address] [place] [address] HMO POS PPO Advance Directives For more information, please contact: [facility] [address] [place] [address] Date Inactivated Comments Code Status Date Activated 08/03/2017 7:15 AM Full Code 07/30/2017 4:14 PM This code status was determined by: Patient
[2018-12-22] MEDS ORDERED: IBUPROFEN 600 MG TAB PO STA (16:39)
[2018-12-22 17:33] VITALS: BP 122/59
--- NOTE | 2018-12-22 19:31 | NUR ---
rc'd called from pt. states that allergic to augmentin. underwriting intern informed. rx for clindamycin called in to [facility].
== END 2018-12-22 17:35 | disposition home or self-care (01) ==
LOC: ER 16:11
DX: R50.9 Fever, unspecified (principal); J02.0 Streptococcal pharyngitis
CPT/HCPCS: 83518; 87070; 99283

== ENCOUNTER 2024-04-24 20:55 | Emergency (ER) | payer MEDICARE ==
[~2024-04-24] VITALS: Ht 157.5 cm; Wt 59.0 kg
[~2024-04-24 20:55] MED LIST changes: +BENZONATATE200 MG PO; +MEDROL4 M2 PO
[2024-04-24 21:35] VITALS: TEMP 98.2
[2024-04-24] MEDS: ALBUTEROL/IPRATROPIUM 3 ML NEB NEB STA (21:42)
[2024-04-24 22:32] VITALS: PULSE 79; RESP 20; O2SAT 98
[2024-04-24 22:41] LABS: BASOPHILS % 0.1 % (0.0-1.0); HEMATOCRIT 40.7 % (34.2-44.1); HEMOGLOBIN 12.8 g/dL (12.0-16.0); LYMPHOCYTES # (AUTO) 1.2 (1.0-3.2); LYMPHOCYTES % 13.4 % (18.0-39.1); MEAN CORPUSCULAR HGB CONC 31.4 g/dL (31-35); MEAN CORPUSCULAR VOLUME 89.1 fL (81-99); MONOCYTES # (AUTO) 0.4 (0.2-0.8); MONOCYTES % 4.8 % (4.4-11.3); NEUTROPHILS # (AUTO) 7.4 (2.1-6.9); NEUTROPHILS % 80.7 % (38.7-80.0); PLATELET COUNT 205 x10e3/uL (140-360); RED BLOOD COUNT 4.57 x10e6/uL (3.6-5.1); RED CELL DISTRIBUTION WIDTH 12.9 % (11.7-14.4); WHITE BLOOD COUNT 9.19 x10e3/uL (4.8-10.8)
[2024-04-24 22:55] LABS: ALBUMIN 3.7 g/dL (3.5-5.0); ALBUMIN/GLOBULIN RATIO 1.3 (0.8-2.0); ANION GAP 15.8 mmol/L (8-16); BILIRUBIN,TOTAL 0.2 mg/dL (0.2-1.2); CALCIUM 8.9 mg/dL (8.4-10.2); CREATININE, SERUM 0.84 mg/dL (0.57-1.11); POTASSIUM 3.8 mmol/L (3.5-5.1); TOTAL PROTEIN 6.5 g/dL (6.5-8.1)
[2024-04-24 23:00] VITALS: PULSE 93; RESP 18; O2SAT 97
[2024-04-24 23:02] LABS: TROPONIN I 0.011 ng/mL (0-0.300)
[2024-04-24 23:07] LABS: INFLUENZAE A&B ANTIGEN (RAPID) NEGATIVE (NEGATIVE); RESPIRATORY SYNC. VIRUS NEGATIVE (NEGATIVE)
[2024-04-24] MEDS ORDERED: AZITHROMYCIN250 MG PO (23:56)
[2024-04-24] MEDS ORDERED: PREDNISONE20 MG PO (23:56)
[2024-04-24] MEDS ORDERED: VENTOLIN HFA18 GM INH (23:56)
== END 2024-04-25 00:25 | disposition home or self-care (01) ==
LOC: ER 21:01
DX: R05.9 Cough, unspecified (principal); J06.9 Acute upper respiratory infection, unspecified; R09.89 Other specified symptoms and signs involving the circulatory and respiratory systems; Z11.52 Encounter for screening for COVID-19
CPT/HCPCS: 36415; 71045; 80053; 82550; 83690; 83880; 84484; 85025; 87400; 87420; 93005; 94799; 99284; U0002